=== PATIENT | male | born 1955 | race Caucasian/White ===

== ENCOUNTER 2023-12-23 10:54 | Outpatient (CLI) | payer OTHER, SELFPAY ==
[2023-12-23 11:36] LABS: Mean Corpuscular Hemoglobin 30.5 pg (26-34); Mean Corpuscular Volume 95.2 fl (80-100); Mean Platelet Volume 10.5 fl (7.4-10.4); Platelet Count Result 222 k/mm3 (150-375); Red Blood Count 5.25 M/mm3 (4.6-6.20); Red Cell Distribution Width 12.7 % (11.5-14.5)
[2023-12-23 11:47] LABS: Alanine Aminotransferase 44 U/L (6-50); Albumin Level 4.3 g/dL (3.5-5.1); Alkaline Phosphatase 59 U/L (38-126); Anion Gap 3 mmol/L (8-16); Aspartate Amino Transferase 28 U/L (17-59); Bilirubin,Total 0.5 mg/dL (0.2-1.3); Blood Urea Nitrogen 17 mg/dL (9-20); Calcium 9.2 mg/dL (8.4-10.2); Carbon Dioxide 32 mmol/L (22-30); Chloride 104 mmol/L (98-107); Cholesterol 169 mg/dL (0-200); Estimated Glomerular Filt Rate > 60; Glucose 102 mg/dL (65-110); HDL Direct 46 mg/dL; Potassium 4.3 mmol/L (3.4-5.0); Sodium 139 mmol/L (137-145); Triglycerides 119 mg/dL (<150)
[2023-12-23 11:58] LABS: LDL Cholesterol Direct 104 mg/dL
[2023-12-23 12:27] LABS: Thyroid Stimulating Hormone Reflex 0.944 uIU/mL (0.465-4.68)
== END 2023-12-23 10:55 | disposition home or self-care (01) ==
PROVIDERS: PCP Nurse Practitioner Family; Visit Provider Nurse Practitioner Family
DX: J44.9 Chronic obstructive pulmonary disease, unspecified (principal); I49.9 Cardiac arrhythmia, unspecified; I10 Essential (primary) hypertension
CPT/HCPCS: 36415; 80053; 80061; 84443; 85027

== ENCOUNTER 2024-01-02 21:03 | Inpatient (IN) | payer OTHER, MEDICARE, SELFPAY ==
[2024-01-02] VITALS (8 sets, daily range): BP systolic 128–174; BP diastolic 77–101; PULSE 104–133; RESP 20–25; TEMP 36.8–38.1; O2SAT 88–95
--- NOTE | ~2024-01-02 | XR_ITS ---
EXAMINATION: XR chest 1V portable DATE: 01/02/2024 21:46 INDICATION: Shortness of breath. Cough. TECHNIQUE: A single frontal view of the chest was obtained on 2 radiographs. COMPARISON: None. FINDINGS: There are airspace opacities in right lower lung zone and left mid and lower lung zones. No pleural effusion or pneumothorax. The heart size is normal. IMPRESSION: 1. Airspace opacities in right lower lung zone and left mid and lower lung zones, consistent with ate lectasis versus pneumonia. Reviewed, dictated and finalized at location [facility] [employer] [employer] IMPRESSION: 1. Airspace opacities in right lower lung zone and left mid and lower lung zone s, consistent with atelectasis versus pneumonia.
--- NOTE | 2024-01-02 21:14 | ECG_ITS ---
Measurements Intervals [place] Rate: 120 P: 68 VA: 185 QRS: 75 QRSD: 117 T: 55 QT: 321 QTc: 454 Interpretive Statements SINUS TACHYCARDIA INCOMPLETE RIGHT BUNDLE BRANCH BLOCK BORDERLINE ST-T WAVE ABNORMALITY- INF/LAT LEADS BASELINE ARTIFACT- I, II, III, AVR, AVL, AVF, V1-V3 ABNORMAL ECG NO PREVIOUS ECG AVAILABLE FOR COMPARISON Electronically Signed On 01-03-2024 7:29:19 [employer] by Cr Molina D.O.
[2024-01-02] MEDS: ACETAMINOPHEN 500 MG TABLET 1000 MG PO (21:37)
[2024-01-02] MEDS: MAGNESIUM SULF 2 GM/WATER 50ML 2 GM/50 ML BAG IVPB (21:38)
[2024-01-02] MEDS: SODIUM CHLORIDE 0.9% IV 2,000 ML 999 ML IV CONT (21:38)
[2024-01-02 21:40] LABS: Basophils Percent Auto 0.2 % (0.2-1.2); Eosinophils Percent Auto 0.1 % (0-4.4); Hematocrit 45.4 % (42.0-52.0); Immature Granulocyte Absolute 0.07 K/mm3 (0.00-0.031); Immature Granulocyte Percent A 0.4 % (0-0.5); Lymphocytes Absolute Auto 2.05 K/mm3 (0.9-3.2); Lymphocytes Percent Auto 10.9 % (18.3-44.2); Mean Corpuscular Hemoglobin 30.8 pg (26-34); Mean Corpuscular Volume 93.2 fl (80-100); Mean Platelet Volume 10.6 fl (7.4-10.4); Monocytes Absolute Auto 1.2 K/mm3 (0.1-0.6); Monocytes Percent Auto 6.2 % (2.6-8.5); Neutrophils Absolute Auto 15.4 K/mm3 (1.3-6.7); Neutrophils Percent Auto 82.2 % (45.5-73.1); Platelet Count Result 193 k/mm3 (150-375); Red Blood Count 4.87 M/mm3 (4.6-6.20); Red Cell Distribution Width 13.1 % (11.5-14.5); White Blood Count 18.8 K/mm3 (4.5-10.0)
[2024-01-02] MEDS: ALBUTEROL SULFATE NEB 2.5 MG/3 ML INH 10 MG INHALATION (21:40)
[2024-01-02] MEDS: IPRATROPIUM BR 0.02% INH SOLN 0.5 MG/2.5 ML VIAL 1 MG INHALATION (21:40)
[2024-01-02] MEDS: dexAMETHasone SOD PHOS INJ 10 MG/ML 1 ML VIAL IV PUSH (21:45)
[2024-01-02 21:50] LABS: Alanine Aminotransferase 36 U/L (6-50); Albumin Level 4.4 g/dL (3.5-5.1); Alkaline Phosphatase 64 U/L (38-126); Anion Gap 8 mmol/L (8-16); Aspartate Amino Transferase 31 U/L (17-59); Bilirubin,Total 1.4 mg/dL (0.2-1.3); Blood Urea Nitrogen 16 mg/dL (9-20); Calcium 8.9 mg/dL (8.4-10.2); Carbon Dioxide 26 mmol/L (22-30); Chloride 103 mmol/L (98-107); Estimated CRCL calculation 76 ml/min; Estimated Glomerular Filt Rate > 60; Glucose 159 mg/dL (65-110); Potassium 4.2 mmol/L (3.4-5.0); Sodium 137 mmol/L (137-145)
[2024-01-02 22:01] LABS: NT Pro B Type Natriuretic Pept 655 pg/mL (19.9-100); Troponin I 0.023 ng/mL (0.000-0.034)
--- NOTE | 2024-01-02 22:07 | ED.GENADULT ---
HPI - General Adult General Chief complaint: Shortness of Breath/Dyspnea Stated complaint: sob Time Seen by Provider: 01/02/24 21:21 History of Present Illness HPI narrative: This is a 68-year-old male with COPD presenting with shortness of breath. Patient says breathing and poor for long time is got acutely worse over last several days. He notes a productive cough and intermittent fever chills. Denies chest pain abdominal pain nausea vomiting diarrhea urinary symptoms. No lower extremity edema. No history of heart failure. Related Data Home Medications Medication Instructions Recorded Confirmed ascorbic acid (vitamin C) 500 mg 500 mg PO DAILY 12/23/23 12/23/23 capsule,extended release (Vitamin C) flaxseed oil 1,000 mg capsule 1,000 mg PO DAILY 12/23/23 12/23/23 ipratropium 20 mcg-albuterol 100 1 puff inhalation .Twice PRN 12/23/23 12/23/23 mcg/actuation mist for inhalation (Combivent Respimat) [id number]-po-[id number] 300 mcg-K 60 1 tablet PO DAILY 12/23/23 12/23/23 mcg-lycop 600 mcg-lutein 300 mcg tablet (Centrum Silver Men) sodium chloride 0.65 % nasal spray 2 spray intranasal BID PRN 12/23/23 12/23/23 aerosol (Nasal [place] (sodium chloride)) Allergies Allergy/AdvReac Type Severity Reaction Status Date / Time morphine AdvReac Vomiting Verified 01/02/24 21:55 [facility] Past Medical History Medical History COPD (chronic obstructive pulmonary disease) Hypertension Family History Family History Father Diabetes mellitus Social History Social History Smoking status: Former smoker Tobacco type: cigarettes Additional smoking assessment comments: 1.5-2ppd Alcohol intake: current Alcohol use details: States he takes 1-2 shots of liquor sometimes. 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 Head: atraumatic. EYES: EOMI, NOSE: Atraumatic NECK: Trachea midline RESPIRATORY: Increased respiratory rate, requiring supplemental oxygen, decreased lung sounds in all turner CARDIOVASCULAR: Tachycardic, +1 edema lower extremities ABDOMINAL: Non-distended MUSCULOSKELETAl: No obvious deformities NEURO: Alert. Moving 4/4 extremities SKIN:: Warm, dry. Normal color PSYCHIATRIC: Normal affect Course Vital Signs Vital signs: Vital Signs Temperature 98.3 F 01/02/24 21:06 Pulse Rate 133 H 01/02/24 21:06 Respiratory Rate 24 H 01/02/24 21:06 Blood Pressure 174/101 H 01/02/24 21:06 Pulse Oximetry 90 01/02/24 21:06 Oxygen Delivery Room Air 01/02/24 21:06 Temperature 100.5 F H 01/02/24 21:31 Pulse Rate 110 H 01/02/24 21:50 Respiratory Rate 23 H 01/02/24 21:50 Blood Pressure 160/86 H 01/02/24 21:31 Pulse Oximetry 95 01/02/24 21:31 Oxygen Delivery Nasal Cannula 01/02/24 21:31 Oxygen Flow Rate 2 01/02/24 21:31 Medical Decision Making [facility] Narrative Medical decision making narrative: -Course: 68-year-old male presenting with shortness of breath. Hypoxic and tachycardic and febrile on arrival. Chest x-ray shows right-sided pneumonia. Patient given breathing treatments and antibiotics. Patient be admitted hospital for further management. -DDX includes but is not limited to: Pneumonia, COPD, heart failure, viral syndrome -Co-morbidities complicating care: COPD on inhalers -Social determinants of health: Patient
[2024-01-02] MEDS: AZITHROMYCIN 500 MG/NS 250 ML 500 MG/250 ML BAG 250 MG IVPB (22:40)
[2024-01-02 22:47] LABS: Influenza A QL RT-PCR Negative (Negative); Influenza B QL RT-PCR Negative (Negative); RSV RNA, RT-PCR Negative (Negative); SARS-CoV-2 RNA PCR Negative (Negative)
--- NOTE | 2024-01-02 23:12 | PM.IMHP ---
H&P: HPI History of Present Illness Date/Time: 01/02/24 23:12 Chief Complaint: SHORTNESS OF BREATH Narrative: EXAMINATION: XR chest 1V portable DATE: 01/02/2024 21:46 INDICATION: Shortness of breath. Cough. TECHNIQUE: A single frontal view of the chest was obtained on 2 radiographs. COMPARISON: None. FINDINGS: There are airspace opacities in right lower lung zone and left mid and lower lung zones. No pleural effusion or pneumothorax. The heart size is normal. IMPRESSION: 1. Airspace opacities in right lower lung zone and left mid and lower lung zones, consistent with atelectasis versus pneumonia. [facility] Past Medical History Medical History COPD (chronic obstructive pulmonary disease) Hypertension Family History Family History Father Diabetes mellitus Social History Social History Smoking status: Former smoker Tobacco type: cigarettes Additional smoking assessment comments: 1.5-2ppd Alcohol intake: current Alcohol use details: States he takes 1-2 shots of liquor sometimes. 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 Home Medications and Allergies Home Medications Medication Instructions Recorded Confirmed Type albuterol sulfate 90 mcg/actuation 1 puff inhalation QID PRN 12/23/23 12/23/23 Rx aerosol inhaler shortness of breath or wheezing #8.5 grams ascorbic acid (vitamin C) 500 mg 500 mg PO DAILY 12/23/23 12/23/23 History capsule,extended release (Vitamin C) budesonide-formoterol HFA 160 2 puff inhalation Q12H #10.2 grams 12/23/23 12/23/23 Rx mcg-4.5 mcg/actuation aerosol inhaler (Symbicort) flaxseed oil 1,000 mg capsule 1,000 mg PO DAILY 12/23/23 12/23/23 History inhalational spacing device #10 ea 12/23/23 12/23/23 Rx (POCKET CHAMBER spacer) ipratropium 20 mcg-albuterol 100 1 puff inhalation .Twice PRN 12/23/23 12/23/23 History mcg/actuation mist for inhalation (Combivent Respimat) ioigqbrz-fq-mvarj 300 mcg-K 60 1 tablet PO DAILY 12/23/23 12/23/23 History mcg-lycop 600 mcg-lutein 300 mcg tablet (Centrum Silver Men) sodium chloride 0.65 % nasal spray 2 spray intranasal BID PRN 12/23/23 12/23/23 History aerosol (Nasal [place] (sodium chloride)) Allergies Allergy/AdvReac Type Severity Reaction Status Date / Time morphine AdvReac Vomiting Verified 01/02/24 21:55 Vital Signs Vital Signs - 24 hr 01/02/24 21:06 01/02/24 21:29 01/02/24 21:31 Temperature 98.3 F Pulse Rate 133 H Respiratory Rate 24 H Blood Pressure 174/101 H Pulse Oximetry 90 88 L 95 Oxygen Delivery Room Air Room Air Nasal Cannula Oxygen Flow Rate 2 01/02/24 21:31 01/02/24 21:25 01/02/24 21:26 Temperature 100.5 F H Pulse Rate 118 H Respiratory Rate 25 H Blood Pressure 160/86 H Pulse Oximetry 95 88 L 93 Oxygen Delivery Room Air Nasal Cannula Oxygen Flow Rate 2 01/02/24 21:50 Temperature Pulse Rate 110 H Respiratory Rate 23 H Blood Pressure Pulse Oximetry Oxygen Delivery Oxygen Flow Rate Exam Narrative: PATIENT IS SITTING IN A STRETCHER Const: General: cooperative, comfortable, well developed, alert, awake, Physically active, in distress mild, ill appearing acutely and average body habitus Nutritional Appearance: average body habitus Orientation/consciousness: patient oriented x3 HENMT: Head: normal to inspection, no
[2024-01-02] MEDS: KETOROLAC 15 MG/ML VIAL (*BKC) IV PUSH (23:34)
[2024-01-03] VITALS (10 sets, daily range): BP systolic 112–139; BP diastolic 51–119; PULSE 60–89; RESP 16–20; TEMP 36.1–36.8; O2SAT 94–99
--- NOTE | 2024-01-03 00:30 | ADMGEN ---
This patient, Gautam Singh, was admitted to [facility] Surg Room 301-01. Patient/family oriented to hospital policies and general routines including ID bracelet, bed and alarms, visiting hours, pain management, procedures, bathroom and other care routines, personal items, smoking policy, room service/diet, and visiting hours. Information on how to activate the Rapid Response Team has been discussed. Patient/Family are encouraged to report perceived risks to care and to ask questions if they do not understand what they are told or what they should do.
[2024-01-03 01:44] LABS: Troponin I 0.042 ng/mL (0.000-0.034)
[2024-01-03 06:00] LABS: Troponin I 0.033 ng/mL (0.000-0.034)
--- NOTE | 2024-01-03 12:17 | PM.IMPN ---
Progress Note: A&P Assessment and Plan (1) PNA (pneumonia): Code(s): J18.9 - Pneumonia, unspecified organism Status: Acute (2) Hypertension: Code(s): I10 - Essential (primary) hypertension Status: Acute (3) COPD (chronic obstructive pulmonary disease): Code(s): J44.9 - Chronic obstructive pulmonary disease, unspecified Status: Acute (4) Influenza A: Code(s): J10.1 - Influenza due to other identified influenza virus with other respiratory manifestations Status: Acute Plan 68-year-old male with COPD presented with shortness of breath or past several days. Associated productive cough and intermittent fever and chills. Denies any chest pain abdominal pain nausea vomiting diarrhea. No lower extremity edema no history of heart disease. Upon ED evaluation he was tachycardic in 110s to 130s hypoxic mildly needing oxygen supplementation. Febrile at 100.5 5. Chest x-ray with airspace opacities in right lower lung zone and left mid and lower lungs consistent with atelectasis versus pneumonia. Patient started on IV antibiotics and steroid with improvement WBC count 18 K mild troponin leak likely due to infection. Influenza RSV COVID negative DVT prophylaxis Lovenox Subjective Date/time seen: 01/03/24 12:17 Interval history: 68-year-old male with COPD presented with shortness of breath or past several days. Associated productive cough and intermittent fever and chills. Denies any chest pain abdominal pain nausea vomiting diarrhea. No lower extremity edema no history of heart disease. Upon ED evaluation he was tachycardic in 110s to 130s hypoxic mildly needing oxygen supplementation. Febrile at 100.5 5. Chest x-ray with airspace opacities in right lower lung zone and left mid and lower lungs consistent with atelectasis versus pneumonia. Patient started on IV antibiotics and steroid with improvement WBC count 18 K mild troponin leak likely due to infection. Influenza RSV COVID negative DVT prophylaxis Lovenox Review of Systems Review of Systems: All systems reviewed & are unremarkable except as noted in HPI and below Exam Narrative: APPEARANCE: No apparent distress. Alert and oriented x3 Head: atraumatic. EYES:? EOMI, NOSE: Atraumatic NECK: Trachea midline RESPIRATORY:? No respiratory distress diminished breath sound bilaterally no wheezes CARDIOVASCULAR:? Regular rate and rhythm no edema ABDOMINAL: Non-distended MUSCULOSKELETAl: No obvious deformities NEURO: Alert. Moving 4/4 extremities SKIN:: Warm, dry. Normal color PSYCHIATRIC: Normal affect Objective Data Vital Signs Vital Signs: Vital Signs - 24 hr 01/02/24 21:06 01/02/24 21:29 01/02/24 21:31 Temperature 98.3 F Pulse Rate 133 H Respiratory Rate 24 H Blood Pressure 174/101 H Pulse Oximetry 90 88 L 95 Oxygen Delivery Room Air Room Air Nasal Cannula Oxygen Flow Rate 2 01/02/24 21:31 01/02/24 21:25 01/02/24 21:26 Temperature 100.5 F H Pulse Rate 118 H Respiratory Rate 25 H Blood Pressure 160/86 H Pulse Oximetry 95 88 L 93 Oxygen Delivery Room Air Nasal Cannula Oxygen Flow Rate 2 01/02/24 21:50 01/02/24 23:17 01/02/24 23:33 Temperature 98.3 F Pulse Rate 110 H 104 H 106 H Respiratory Rate 23 H 24 H 20 Blood Pressure 128/77 Pulse Oximetry 95 Oxygen Delivery Oxygen Flow Rate 01/03/24 00:28 01/03/24 00:30 01/03/24 04:35 Temperature 98.3 F 97 F L Pulse Rate 60 89 Respiratory Rate 18 18 Blood Pressure 112/63 124/51 L Pulse Oximetry 94 94 98 Oxygen Delivery Nasal Cannula Oxygen Flow Rate 2 01/03/24 08:00 01/03/24 08:36 Temperature Pulse Rate Respiratory Rate Blood Pressure Pulse Oximetry 98 94 Oxygen Delivery Nasal Cannula Nasal Cannula Oxygen Flow Rate 2 2 Intake/Output Intake/Output: Intake & Output 12/31/23 01/01/24 01/02/24 01/03/24 23:59 23:59 23:59 23:59 Intake Total 2350 290 Balance 2350 290 Meds/Results M
[2024-01-03] MEDS: dexAMETHasone SOD PHOS INJ 10 MG/ML 1 ML VIAL 6 MG IV PUSH (12:40)
[2024-01-03] MEDS: guaiFENesin 12 HR 600 MG TABCR 1200 MG PO ×2 (14:08→20:31)
[2024-01-03] MEDS: FLUTICASONE/SALMETEROL 115-21 MCG INHALER 1 PUFF 2 PUFF INHALATION (19:56)
[2024-01-03] MEDS: AZITHROMYCIN 500 MG/NS 250 ML 500 MG/250 ML BAG 250 MG IVPB (21:07)
[2024-01-04] VITALS (8 sets, daily range): BP systolic 143–148; BP diastolic 80–86; PULSE 55–82; RESP 16–20; TEMP 36.3–36.6; O2SAT 96–100
--- NOTE | 2024-01-04 03:53 | PC.NURSE ---
Daylight Savings Time For Daylight Savings Time Ending in the Fall - Clocks are moved back. For Daylight Savings Time Beginning in the Spring - Clocks are moved ahead. For [facility], the time of change occurs at 0200 hrs. Time is taken from the server engineer. This entry on the patient's chart recognizes the change in time reflected during documentation. Example: 2 entries for vital signs may be charted for 0200 hrs.
[2024-01-04 06:16] LABS: Basophils Percent Auto 0.1 % (0.2-1.2); Hematocrit 43.3 % (42.0-52.0); Hemoglobin 14.1 g/dL (14.0-18.0); Immature Granulocyte Absolute 0.11 K/mm3 (0.00-0.031); Immature Granulocyte Percent A 0.6 % (0-0.5); Lymphocytes Absolute Auto 1.42 K/mm3 (0.9-3.2); Lymphocytes Percent Auto 7.3 % (18.3-44.2); Mean Corpuscular HGB Conc 32.6 g/dl (32-36); Mean Corpuscular Hemoglobin 30.7 pg (26-34); Mean Corpuscular Volume 94.3 fl (80-100); Mean Platelet Volume 11.3 fl (7.4-10.4); Monocytes Absolute Auto 1.1 K/mm3 (0.1-0.6); Monocytes Percent Auto 5.7 % (2.6-8.5); Neutrophils Absolute Auto 16.7 K/mm3 (1.3-6.7); Neutrophils Percent Auto 86.3 % (45.5-73.1); Platelet Count Result 206 k/mm3 (150-375); Red Blood Count 4.59 M/mm3 (4.6-6.20); Red Cell Distribution Width 13.2 % (11.5-14.5); White Blood Count 19.3 K/mm3 (4.5-10.0)
[2024-01-04 06:24] LABS: Alanine Aminotransferase 55 U/L (6-50); Alkaline Phosphatase 61 U/L (38-126); Anion Gap 5 mmol/L (8-16); Aspartate Amino Transferase 50 U/L (17-59); Bilirubin,Total 0.6 mg/dL (0.2-1.3); Blood Urea Nitrogen 22 mg/dL (9-20); Calcium 8.6 mg/dL (8.4-10.2); Carbon Dioxide 26 mmol/L (22-30); Chloride 106 mmol/L (98-107); Estimated CRCL calculation 105 ml/min; Estimated Glomerular Filt Rate > 60; Glucose 138 mg/dL (65-110); Magnesium 2.4 mg/dL (1.6-2.3); Potassium 4.6 mmol/L (3.4-5.0); Sodium 137 mmol/L (137-145)
[2024-01-04] MEDS: FLUTICASONE/SALMETEROL 115-21 MCG INHALER 1 PUFF 2 PUFF INHALATION ×2 (08:15→19:44)
[2024-01-04] MEDS: guaiFENesin 12 HR 600 MG TABCR 1200 MG PO ×2 (09:40→21:01)
[2024-01-04] MEDS: OPTI-GEN TAB 1 TABLET PO (09:40)
[2024-01-04] MEDS: dexAMETHasone SOD PHOS INJ 10 MG/ML 1 ML VIAL 6 MG IV PUSH (09:40)
[2024-01-04] MEDS: ASCORBIC ACID 500 MG TABLET PO (09:40)
[2024-01-04] MEDS: SALINE 0.65% NAS SOLN 44 ML BTL 2 SPRAY NASAL (09:43)
--- NOTE | 2024-01-04 11:47 | PM.IMPN ---
Progress Note: A&P Assessment and Plan (1) PNA (pneumonia): Code(s): J18.9 - Pneumonia, unspecified organism Status: Acute (2) Hypertension: Code(s): I10 - Essential (primary) hypertension Status: Acute (3) COPD (chronic obstructive pulmonary disease): Code(s): J44.9 - Chronic obstructive pulmonary disease, unspecified Status: Acute (4) Influenza A: Code(s): J10.1 - Influenza due to other identified influenza virus with other respiratory manifestations Status: Acute Plan 68-year-old male with COPD presented with shortness of breath or past several days. Associated productive cough and intermittent fever and chills. Denies any chest pain abdominal pain nausea vomiting diarrhea. No lower extremity edema no history of heart disease. Upon ED evaluation he was tachycardic in 110s to 130s hypoxic mildly needing oxygen supplementation. Febrile at 100.5 5. Chest x-ray with airspace opacities in right lower lung zone and left mid and lower lungs consistent with atelectasis versus pneumonia. Patient started on IV antibiotics and steroid with improvement WBC count 18 K mild troponin leak likely due to infection. Influenza RSV COVID negative DVT prophylaxis Lovenox. Add DuoNeb. Leukocytosis still persists. Will continue to monitor Subjective Date/time seen: 01/04/24 11:47 Interval history: 68-year-old male with COPD presented with shortness of breath or past several days. Associated productive cough and intermittent fever and chills. Denies any chest pain abdominal pain nausea vomiting diarrhea. No lower extremity edema no history of heart disease. Upon ED evaluation he was tachycardic in 110s to 130s hypoxic mildly needing oxygen supplementation. Febrile at 100.5 5. Chest x-ray with airspace opacities in right lower lung zone and left mid and lower lungs consistent with atelectasis versus pneumonia. Patient started on IV antibiotics and steroid with improvement WBC count 18 K mild troponin leak likely due to infection. Influenza RSV COVID negative DVT prophylaxis Lovenox 01/04/2024: Feels okay self illness short of breath better than when he came in. Minimal cough. Review of Systems Review of Systems: All systems reviewed & are unremarkable except as noted in HPI and below Exam Narrative: APPEARANCE: No apparent distress. Alert and oriented x3 Head: atraumatic. EYES:? EOMI, NOSE: Atraumatic NECK: Trachea midline RESPIRATORY:? No respiratory distress diminished breath sound bilaterally no wheezes CARDIOVASCULAR:? Regular rate and rhythm no edema ABDOMINAL: Non-distended MUSCULOSKELETAl: No obvious deformities NEURO: Alert. Moving 4/4 extremities SKIN:: Warm, dry. Normal color PSYCHIATRIC: Normal affect Objective Data Vital Signs Vital Signs: Vital Signs - 24 hr 01/03/24 14:00 01/03/24 17:53 01/03/24 19:58 Temperature 97.7 F Pulse Rate 87 75 Respiratory Rate 20 18 Blood Pressure 137/119 H Pulse Oximetry 99 97 Oxygen Delivery Room Air Oxygen Flow Rate 01/03/24 19:59 01/03/24 20:00 01/03/24 20:24 Temperature 97.5 F L Pulse Rate 75 82 Respiratory Rate 18 16 Blood Pressure 139/92 H Pulse Oximetry 95 95 Oxygen Delivery Nasal Cannula Room Air Oxygen Flow Rate 2 01/04/24 05:00 01/04/24 09:44 Temperature 97.6 F Pulse Rate 74 Respiratory Rate 16 Blood Pressure 143/82 H Pulse Oximetry 97 Oxygen Delivery Room Air Oxygen Flow Rate Intake/Output Intake/Output: Intake & Output 01/01/24 01/02/24 01/03/24 01/05/24 23:59 23:59 23:59 00:59 Intake Total 2350 1535 960 Balance 2350 1535 960 Meds/Results Medications: Active Medications Generic Name Dose Route Start Last Admin Trade Name Freq PRN Reason Stop Dose Admin Albuterol 1 puff 01/03/24 12:22 Albuterol Sulfate (*Sp) Aerosol 1 Puff INHALATION QID PRN shortness of breath or wheezing Ascorbic Acid 500 mg 01/04/24 09:00 01/04/24
[2024-01-04] MEDS: IPRATROPIUM 0.5 MG/ALBUTEROL SULFATE 2.5 MG AMPUL.NEB 3 ML INHALATION ×2 (13:56→19:44)
[2024-01-04] MEDS: AZITHROMYCIN 500 MG/NS 250 ML 500 MG/250 ML BAG 250 MG IVPB (22:06)
[2024-01-05] VITALS (9 sets, daily range): BP systolic 151–162; BP diastolic 88–104; PULSE 55–95; RESP 18–24; TEMP 36.1–36.6; O2SAT 94–97
[2024-01-05 06:17] LABS: Basophils Percent Auto 0.1 % (0.2-1.2); Hematocrit 43.8 % (42.0-52.0); Hemoglobin 14.1 g/dL (14.0-18.0); Immature Granulocyte Absolute 0.05 K/mm3 (0.00-0.031); Immature Granulocyte Percent A 0.4 % (0-0.5); Lymphocytes Absolute Auto 1.55 K/mm3 (0.9-3.2); Lymphocytes Percent Auto 11.4 % (18.3-44.2); Mean Corpuscular HGB Conc 32.2 g/dl (32-36); Mean Corpuscular Hemoglobin 30.6 pg (26-34); Mean Platelet Volume 11.2 fl (7.4-10.4); Monocytes Absolute Auto 0.9 K/mm3 (0.1-0.6); Monocytes Percent Auto 6.4 % (2.6-8.5); Neutrophils Absolute Auto 11.1 K/mm3 (1.3-6.7); Neutrophils Percent Auto 81.7 % (45.5-73.1); Platelet Count Result 222 k/mm3 (150-375); Red Blood Count 4.61 M/mm3 (4.6-6.20); Red Cell Distribution Width 13.1 % (11.5-14.5); White Blood Count 13.6 K/mm3 (4.5-10.0)
[2024-01-05 06:40] LABS: Alanine Aminotransferase 53 U/L (6-50); Albumin Level 3.8 g/dL (3.5-5.1); Alkaline Phosphatase 65 U/L (38-126); Anion Gap 3 mmol/L (8-16); Aspartate Amino Transferase 38 U/L (17-59); Bilirubin,Total 0.5 mg/dL (0.2-1.3); Blood Urea Nitrogen 23 mg/dL (9-20); Calcium 8.8 mg/dL (8.4-10.2); Carbon Dioxide 29 mmol/L (22-30); Chloride 106 mmol/L (98-107); Estimated CRCL calculation 93 ml/min; Estimated Glomerular Filt Rate > 60; Glucose 129 mg/dL (65-110); Magnesium 2.3 mg/dL (1.6-2.3); Potassium 4.3 mmol/L (3.4-5.0); Sodium 138 mmol/L (137-145)
[2024-01-05] MEDS: IPRATROPIUM 0.5 MG/ALBUTEROL SULFATE 2.5 MG AMPUL.NEB 3 ML INHALATION ×3 (07:35→20:31)
[2024-01-05] MEDS: FLUTICASONE/SALMETEROL 115-21 MCG INHALER 1 PUFF 2 PUFF INHALATION ×2 (07:45→20:35)
[2024-01-05] MEDS: OPTI-GEN TAB 1 TABLET PO (08:16)
[2024-01-05] MEDS: dexAMETHasone SOD PHOS INJ 10 MG/ML 1 ML VIAL 6 MG IV PUSH (08:16)
[2024-01-05] MEDS: ASCORBIC ACID 500 MG TABLET PO (08:16)
[2024-01-05] MEDS: guaiFENesin 12 HR 600 MG TABCR 1200 MG PO ×2 (08:16→20:02)
[2024-01-05] MEDS: ENOXAPARIN 40 MG/0.4 ML SYRINGE SUB-Q (08:18)
--- NOTE | 2024-01-05 12:51 | PM.IMPN ---
Progress Note: A&P Assessment and Plan (1) PNA (pneumonia): Code(s): J18.9 - Pneumonia, unspecified organism Status: Acute (2) Hypertension: Code(s): I10 - Essential (primary) hypertension Status: Acute (3) COPD (chronic obstructive pulmonary disease): Code(s): J44.9 - Chronic obstructive pulmonary disease, unspecified Status: Acute (4) Influenza A: Code(s): J10.1 - Influenza due to other identified influenza virus with other respiratory manifestations Status: Acute Plan 68-year-old male with COPD presented with shortness of breath or past several days. Associated productive cough and intermittent fever and chills. Denies any chest pain abdominal pain nausea vomiting diarrhea. No lower extremity edema no history of heart disease. Upon ED evaluation he was tachycardic in 110s to 130s hypoxic mildly needing oxygen supplementation. Febrile at 100.5 5. Chest x-ray with airspace opacities in right lower lung zone and left mid and lower lungs consistent with atelectasis versus pneumonia. Patient started on IV antibiotics and steroid with improvement WBC count 18 K mild troponin leak likely due to infection. Influenza RSV COVID negative DVT prophylaxis Lovenox. Add DuoNeb. Leukocytosis still persists but improving. Will continue to monitor change to oral antibiotics Subjective Date/time seen: 01/05/24 12:51 Interval history: 68-year-old male with COPD presented with shortness of breath or past several days. Associated productive cough and intermittent fever and chills. Denies any chest pain abdominal pain nausea vomiting diarrhea. No lower extremity edema no history of heart disease. Upon ED evaluation he was tachycardic in 110s to 130s hypoxic mildly needing oxygen supplementation. Febrile at 100.5 5. Chest x-ray with airspace opacities in right lower lung zone and left mid and lower lungs consistent with atelectasis versus pneumonia. Patient started on IV antibiotics and steroid with improvement WBC count 18 K mild troponin leak likely due to infection. Influenza RSV COVID negative DVT prophylaxis Lovenox 01/04/2024: Feels okay self illness short of breath better than when he came in. Minimal cough. 01/05/2024: No overnight events. Agitated/aggravated due to constant waking up in the night. Breathing is better. Shortness of breath with ambulation persist Review of Systems Review of Systems: All systems reviewed & are unremarkable except as noted in HPI and below Exam Narrative: APPEARANCE: No apparent distress. Alert and oriented x3 Head: atraumatic. EYES:? EOMI, NOSE: Atraumatic NECK: Trachea midline RESPIRATORY:? No respiratory distress diminished breath sound bilaterally no wheezes CARDIOVASCULAR:? Regular rate and rhythm no edema ABDOMINAL: Non-distended MUSCULOSKELETAl: No obvious deformities NEURO: Alert. Moving 4/4 extremities SKIN:: Warm, dry. Normal color PSYCHIATRIC: Normal affect Objective Data Vital Signs Vital Signs: Vital Signs - 24 hr 01/04/24 13:50 01/04/24 13:56 01/04/24 14:00 Temperature 97.8 F Pulse Rate 82 55 L 55 L Respiratory Rate 20 18 18 Blood Pressure 143/86 H Pulse Oximetry 97 97 Oxygen Delivery Room Air 01/04/24 14:05 01/04/24 19:46 01/04/24 19:46 Temperature Pulse Rate 61 77 77 Respiratory Rate 18 18 Blood Pressure Pulse Oximetry 96 Oxygen Delivery Room Air 01/04/24 19:52 01/04/24 19:50 01/04/24 20:00 Temperature 97.4 F L Pulse Rate 80 81 Respiratory Rate 18 20 Blood Pressure 148/80 H Pulse Oximetry 100 Oxygen Delivery Room Air 01/05/24 04:13 01/05/24 07:35 01/05/24 07:35 Temperature 97 F L Pulse Rate 55 L 82 Respiratory Rate 18 18 Blood Pressure 151/88 H Pulse Oximetry 94 96 Oxygen Delivery Room Air 01/05/24 07:46 01/05/24 08:00 Temperature Pulse Rate 78 Respiratory Rate 18 Blood Pressure Pulse Oximetry Oxygen Delivery Room Air Int
[2024-01-05] MEDS: CEFDINIR 300 MG CAPSULE PO (20:02)
--- NOTE | 2024-01-06 00:25 | PCRCNOTE ---
Apnea link not done due to none available. Will be completed on 01/06/2024.
[2024-01-06 04:20] VITALS: BP 155/94; PULSE 78; RESP 20; TEMP 36.4; O2SAT 97
[2024-01-06] MEDS: IPRATROPIUM 0.5 MG/ALBUTEROL SULFATE 2.5 MG AMPUL.NEB 3 ML INHALATION (08:24)
[2024-01-06] MEDS: FLUTICASONE/SALMETEROL 115-21 MCG INHALER 1 PUFF 2 PUFF INHALATION (08:24)
[2024-01-06 08:28] VITALS: PULSE 88; RESP 18; O2SAT 94
[2024-01-06 08:42] LABS: Hemoglobin 13.8 g/dL (14.0-18.0); Mean Corpuscular HGB Conc 32.1 g/dl (32-36); Mean Corpuscular Hemoglobin 30.4 pg (26-34); Mean Corpuscular Volume 94.7 fl (80-100); Mean Platelet Volume 10.4 fl (7.4-10.4); Platelet Count Result 232 k/mm3 (150-375); Red Blood Count 4.54 M/mm3 (4.6-6.20); Red Cell Distribution Width 13.3 % (11.5-14.5)
[2024-01-06] MEDS: dexAMETHasone 2 MG TABLET 6 MG PO (08:43)
[2024-01-06] MEDS: guaiFENesin 12 HR 600 MG TABCR 1200 MG PO (08:43)
[2024-01-06] MEDS: ASCORBIC ACID 500 MG TABLET PO (08:43)
[2024-01-06] MEDS: CEFDINIR 300 MG CAPSULE PO (08:43)
[2024-01-06] MEDS: AZITHROMYCIN 250 MG TABLET 500 MG PO (08:43)
[2024-01-06] MEDS: OPTI-GEN TAB 1 TABLET PO (08:43)
[2024-01-06] MEDS: ENOXAPARIN 40 MG/0.4 ML SYRINGE SUB-Q (08:48)
[2024-01-06] MEDS: SALINE 0.65% NAS SOLN 44 ML BTL 2 SPRAY NASAL (08:54)
[2024-01-06 08:57] LABS: Alanine Aminotransferase 53 U/L (6-50); Albumin Level 3.7 g/dL (3.5-5.1); Alkaline Phosphatase 57 U/L (38-126); Anion Gap 4 mmol/L (8-16); Aspartate Amino Transferase 28 U/L (17-59); Bilirubin,Total 0.7 mg/dL (0.2-1.3); Blood Urea Nitrogen 19 mg/dL (9-20); Calcium 8.8 mg/dL (8.4-10.2); Carbon Dioxide 32 mmol/L (22-30); Chloride 102 mmol/L (98-107); Estimated CRCL calculation 93 ml/min; Estimated Glomerular Filt Rate > 60; Glucose 96 mg/dL (65-110); Sodium 138 mmol/L (137-145)
--- NOTE | 2024-01-06 12:48 | PM.DS ---
DS: Admitting Diagnosis Discharge Date 01/06/2024 Admitting Diagnosis Shortness of breath DS: Discharge Diagnosis Discharge Diagnosis (1) PNA (pneumonia): Code(s): J18.9 - Pneumonia, unspecified organism Status: Acute (2) Hypertension: Code(s): I10 - Essential (primary) hypertension Status: Acute (3) COPD (chronic obstructive pulmonary disease): Code(s): J44.9 - Chronic obstructive pulmonary disease, unspecified Status: Acute (4) Influenza A: Code(s): J10.1 - Influenza due to other identified influenza virus with other respiratory manifestations Status: Acute DS: Summary Hospital Course Hospital Course: 68-year-old male with COPD presented with shortness of breath or past several days.? Associated productive cough and intermittent fever and chills.? Denies any chest pain abdominal pain nausea vomiting diarrhea.? No lower extremity edema no history of heart disease.? Upon ED evaluation he was tachycardic in 110s to 130s hypoxic mildly needing oxygen supplementation.? Febrile at 100.5 5.? Chest x-ray with airspace opacities in right lower lung zone and left mid and lower lungs consistent with atelectasis versus pneumonia.? Patient started on IV antibiotics and steroid with improvement WBC count 18 K mild troponin leak likely due to infection.? Influenza RSV COVID negative DVT prophylaxis Lovenox.? Added duoNeb.? Leukocytosis resolved during hospital stay.? Discharge on oral medication with steroid taper. Nebulizer at discharge as well for his underlying history of COPD. Already on Symbicort at home. Time Spent with Patient Time attestation: Total time spent providing and/or coordinating discharge services: 35 minutes Exam Narrative: APPEARANCE: No apparent distress. Alert and oriented x3 Head: atraumatic. EYES:? EOMI, NOSE: Atraumatic NECK: Trachea midline RESPIRATORY:? No respiratory distress diminished breath sound bilaterally no wheezes CARDIOVASCULAR:? Regular rate and rhythm no edema ABDOMINAL: Non-distended MUSCULOSKELETAl: No obvious deformities NEURO: Alert. Moving 4/4 extremities SKIN:: Warm, dry. Normal color PSYCHIATRIC: Normal affect DS: Data Data Completed and Pending Labs on day of discharge: Labs from last 24 hours 01/06/24 08:35 WBC 9.0 RBC 4.54 L Hgb 13.8 L Hct 43.0 MCV 94.7 MCH 30.4 MCHC 32.1 RDW 13.3 Plt Count 232 MPV 10.4 Sodium 138 Potassium 4.0 Chloride 102 Carbon Dioxide 32 H Anion Gap 4 L BUN 19 Creatinine 0.80 Estim Creat Clear Calc 93 Estimated GFR > 60 Glucose 96 Calcium 8.8 Total Bilirubin 0.7 AST 28 ALT 53 H Alkaline Phosphatase 57 Total Protein 7.0 Albumin 3.7 Imaging Radiologist's impression: ITS Impressions Chest X-Ray 01/02/24 21:51 IMPRESSION: 1. Airspace opacities in right lower lung zone and left mid and lower lung zones, consistent with atelectasis versus pneumonia. Discharge Plan Discharge Attending physician on discharge: Mohsen Templeton Discharging Clinician: Mohsen Templeton Anticipated Discharge Date/Time: 01/06/24 12:43 Patient Disposition: Home, Self-Care Activity: as tolerated Diet: heart healthy Patient Instructions: Antibiotic Form Stand Alone Forms: General Discharge Information Follow-up/Referrals: Magalis Wilkes APRN [Primary Care Provider] - 1 Week Discharge Medications: New (DME) nebulizer and compressor Device See Rx Instructions .Route Qty: 1 0RF Rx Instructions: As directed azithromycin [Zithromax] 250 mg Tablet 500 mg PO DAILY Qty: 2 0RF cefdinir 300 mg Capsule 300 mg PO Q12HR Qty: 8 0RF guaifenesin [Mucus Relief ER] 600 mg Tablet Extended Release 12hr 1,200 mg PO Q12HR Qty: 30 0RF ipratropium-albuterol 0.5 mg-3 mg(2.5 mg base)/3 mL Solution For Nebulization 3 ml inhalation [id number] PRN (Reason: Shortness of breath) Qty: 30 0RF dexamethasone 1.5 mg (21 tabs) t
== END 2024-01-06 14:10 | disposition home or self-care (01) | DRG 194 ==
LOC: ANHED 22:21 → ANH3MEDSUR 23:54
PROVIDERS: Admitting Provider Internal Medicine; Emergency Provider Emergency Medicine; PCP Nurse Practitioner Family; Visit Provider Internal Medicine
DX: J18.9 Pneumonia, unspecified organism (principal); J44.0 Chronic obstructive pulmonary disease with (acute) lower respiratory infection; J98.11 Atelectasis; R09.02 Hypoxemia; I10 Essential (primary) hypertension; Z20.822 Contact with and (suspected) exposure to COVID-19; Z87.891 Personal history of nicotine dependence
CPT/HCPCS: 36415; 71045; 80053; 83735; 83880; 84484; 85025; 85027; 87637; 93005; 94640; 96365; 96367; 96375; 99285; A9270; J0456; J0696; J1100; J1650; J1885; J3475; J7030; J8540

== ENCOUNTER → 2025-01-19 16:27 | Outpatient (CLI) | payer OTHER, SELFPAY ==
--- NOTE | ~2025-01-19 | XR_ITS ---
XR chest 2V 01/19/2025 16:56 Indication: COPD Procedure: 2 view chest Comparison: 01/02/2024 Findings: Heart size normal. No focal pneumonia, pleural effusion, edema or pneumothorax. There is díaz bsegmental atelectasis left midlung. Mild thoracic spondylosis. Impression: 1: Subsegmental atelectasis left midlung. Reviewed, dictated and finalized at location A. Impression: 1: Subsegmental atelectasis left midlung.
== END ==
PROVIDERS: PCP Family Medicine; Visit Provider Family Medicine
DX: J98.11 Atelectasis (principal); J44.9 Chronic obstructive pulmonary disease, unspecified
CPT/HCPCS: 71046